=== PATIENT | male | born 1965 | race American Indian/Alaskan Native ===

== ENCOUNTER 2019-05-18 00:48 | Emergency (ER) | payer SELFPAY ==
--- NOTE | 2019-05-18 02:47 | XRay Report ---
RIGHT KNEE 3 VIEWS INDICATION / CLINICAL INFORMATION: Right knee and upper Tib/Fib pain COMPARISON: None available. FINDINGS: BONES / JOINT(S): No acute fracture or subluxation. No significant arthritis. SOFT TISSUES: No significant abnormality. ADDITIONAL FINDINGS: None. Signer Name: Clay Raman MD Signed: 05/18/2019 2:43 AM Workstation Name: [id number]
--- NOTE | 2019-05-18 05:22 | Emergency Department Report ---
ED Extremity Problem HPI - General Chief complaint: Extremity Injury, Lower Stated complaint: RT LEG PAIN Time Seen by Provider: 05/18/19 04:26 Source: patient Mode of arrival: Ambulatory Limitations: No Limitations - History of Present Illness Initial comments: 53-year-old male presents emergency department after sustaining an injury to his right knee. While doing some work around the house a sink fell down striking him to the medial aspect of his right knee causing pain with standing and palpation. Pain presented in a dull throbbing fashion. MD Complaint: extremity pain, extremity swelling -: days(s) Location: right, lower extremity -: Yes arthralgia Consistency: constant Associated Symptoms: denies: chest pain, shortness of breath, myalgias, arthralgias - Related Data Allergies Allergy/AdvReac Type Severity Reaction Status Date / Time No Known Allergies Allergy Unverified 05/18/19 01:52 ED Review of Systems ROS: Stated complaint: RT LEG PAIN Other details as noted in HPI Comment: All other systems reviewed and negative ED Past Medical Hx - Past Medical History Previous Medical History?: No - Surgical History Past Surgical History?: No - Social History Smoking Status: Former Smoker Substance Use Type: None ED Physical Exam - General Limitations: No Limitations General appearance: alert, in no apparent distress - Head Head exam: Present: atraumatic, normocephalic - Eye Eye exam: Present: normal appearance, PERRL, EOMI Pupils: Present: normal accommodation - ENT ENT exam: Present: normal exam, normal orophraynx, mucous membranes moist - Neck Neck exam: Present: normal inspection - Respiratory Respiratory exam: Present: normal lung sounds bilaterally. Absent: respiratory distress - Cardiovascular Cardiovascular Exam: Present: regular rate, normal rhythm. Absent: systolic murmur, diastolic murmur, rubs, gallop - GI/Abdominal GI/Abdominal exam: Present: soft, normal bowel sounds - Rectal Rectal exam: Present: deferred - Extremities Exam Extremities exam: Present: normal inspection, tenderness (to the right knee with palpation. No bruising is noted. Joint was stable no tenderness with varus and valgus and drawer tests are negative. There is some tenderness with palpation along the medial or broken skin. Popliteal masses or tenderness as well), normal capillary refill - Back Exam Back exam: Present: normal inspection - Neurological Exam Neurological exam: Present: alert, oriented X3 - Psychiatric Psychiatric exam: Present: normal affect, normal mood - Skin Skin exam: Present: warm, dry, intact, normal color. Absent: rash ED Course Vital Signs 05/18/19 00:59 Temperature 97.9 F Pulse Rate 78 Respiratory 20 Rate Blood Pressure 120/90 O2 Sat by Pulse 98 Oximetry ED Medical Decision Making - Radiology Data Radiology results: report reviewed (x-ray shows normal) - Medical Decision Making LOW RISK This 53-year-old patient presents with knee pain, suspicious for contusion/strai n. Able to flex and extend although somewhat limited by pain. Considered, but doubt, tibial plateau fracture, septic arthritis, other acute unstable fracture, or significant neurovascular compromise. Plan: XR showed no acute processes, pain control, ice and discharged home Critical care attestation.: If time is entered above; I have spent that time in minutes in the direct care of this critically ill patient, excluding procedure time. ED Disposition Clinical Impression: Knee contusion Disposition: DC-01 TO HOME OR SELFCARE Is pt being admited?: No Does the pt Need Aspirin: No Condition: Stable Instructions: Knee Sprain (ED), Contusion in Adults (ED), RICE Therapy (ED), Ice Pack Application (ED) Referrals: SANGITA RUIZ MD [Staff Physician] - 3-5 Days
[2019-05-18 05:49] VITALS: BP 122/88
== END 2019-05-18 05:49 | disposition home or self-care (01) ==
LOC: ED 00:48
DX: S80.01XA Contusion of right knee, initial encounter (principal); W18.30XA Fall on same level, unspecified, initial encounter; Y93.89 Activity, other specified; Y92.89 Other specified places as the place of occurrence of the external cause; Y99.8 Other external cause status
CPT/HCPCS: 99283